=== PATIENT | male | born 1990 | race Caucasian/White ===

== ENCOUNTER → 2017-06-15 | Outpatient (CLI) | payer BC ==
[2017-06-15 07:27] LABS: Basophils % (A) 1 %; CH 32.3; Eosinophils # (A) 0.1 k/uL (0-0.7); Eosinophils % (A) 2 %; HCT 47.3 % (39.0-53.0); HDW 2.45; HGB 16.6 gm/dL (13.0-17.5); Luc # (Auto) 0.19; Luc % (Auto) 4; Lymphocytes # (A) 1.9 k/uL (1.0-4.8); Lymphocytes % (A) 38 %; MCH 32.4 pg (25.0-35.0); MCV 92.6 fL (80.0-100.0); Mean Platelet Volume 8.1; Monocytes # (A) 0.4 k/uL (0-1.0); Monocytes % (A) 8 %; Neutrophils # (A) 2.4 k/uL (1.3-7.7); Neutrophils % (A) 48 %; RBC 5.11 m/uL (4.30-5.90); RDW 13.2 % (11.5-15.5); WBC (Perox) 4.89
[2017-06-15 07:55] LABS: ALT 42 U/L (21-72); AST 21 U/L (17-59); Alkaline Phosphatase 69 U/L (38-126); Anion Gap 10 mmol/L; Blood Urea Nitrogen 11 mg/dL (9-20); Calcium 9.5 mg/dL (8.4-10.2); Carbon Dioxide 26 mmol/L (22-30); Chloride 104 mmol/L (98-107); Cholesterol 162 mg/dL (<200); Glucose 90 mg/dL (74-99); HDL Cholesterol 47 mg/dL (40-60); Non-African American GFR(MDRD) >60 (>60 ml/min/1.73 sqM); Potassium 4.7 mmol/L (3.5-5.1); Sodium 140 mmol/L (137-145); Total Bilirubin 0.5 mg/dL (0.2-1.3); Total Protein 7.1 g/dL (6.3-8.2); Triglycerides 114 mg/dL (<150)
== END | disposition home or self-care (01) ==
LOC: LABWHC1 06:51
PROVIDERS: ATTEND Internal Medicine
DX: R10.2 Pelvic and perineal pain (principal)
CPT/HCPCS: 36415; 80053; 80061; 84439; 84443; 85025

== ENCOUNTER → 2017-06-23 | Outpatient (CLI) | payer BC ==
--- NOTE | 2017-06-23 16:48 | US ---
EXAMINATION TYPE: US pelvic limited DATE OF EXAM: 06/23/2017 COMPARISON: NONE CLINICAL HISTORY: Pelvic Pain R10.2. Patient stated has bilateral groin pain and denies any palpable at this level. Bladder: bladder appears wnl; bilateral ureteral jets are seen; no pelvic masses are seen laterally. Bilateral Groin US: no hernias are identified at patient's inguinal pain. IMPRESSION: Negative pelvic sonogram.
== END | disposition home or self-care (01) ==
LOC: RADUSWWP 16:11
PROVIDERS: ATTEND Internal Medicine
DX: R10.2 Pelvic and perineal pain (principal)
CPT/HCPCS: 76857

== ENCOUNTER → 2018-09-21 | Outpatient (CLI) | payer BC ==
--- NOTE | 2018-09-21 09:55 | XR ---
Left knee HISTORY: Trauma one month prior and pain 3 views of the left knee Bone mineralization, joint spaces and alignment are maintained. Suspect there is a joint effusion. IMPRESSION: No fracture or dislocation. Consider knee MRI.
--- NOTE | 2018-09-21 09:56 | XR ---
Left ankle HISTORY: Trauma one month prior, pain 3 views of the left ankle Bone mineralization, joint spaces and alignment are maintained. IMPRESSION: No fracture or dislocation. Ankle MRI may be of benefit.
== END | disposition home or self-care (01) ==
LOC: RADXRMAIN 07:00
PROVIDERS: ATTEND Internal Medicine
DX: M25.562 Pain in left knee (principal); M25.572 Pain in left ankle and joints of left foot

== ENCOUNTER → 2018-12-28 | Outpatient (CLI) | payer BC ==
--- NOTE | 2018-12-28 10:05 | XR ---
EXAMINATION TYPE: XR abdomen 1V DATE OF EXAM: 12/28/2018 COMPARISON: None INDICATION: Urinary hesitancy TECHNIQUE: Single view abdomen supine view FINDINGS: There is a normal bowel gas pattern. Mild fecal debris is present. Psoas margins are normal. No organomegaly is present. IMPRESSION: 1. Unremarkable Abdomen
== END | disposition home or self-care (01) ==
LOC: RADXRMAIN 06:56
PROVIDERS: ATTEND Internal Medicine
DX: R39.11 Hesitancy of micturition (principal)
CPT/HCPCS: 74018

== ENCOUNTER → 2019-01-10 | Outpatient (CLI) | payer BC ==
--- NOTE | 2019-01-11 08:10 | NM ---
EXAMINATION TYPE: NM hepatobiliary w EF DATE OF EXAM: 01/10/2019 COMPARISON: NONE HISTORY: Right upper quadrant abdominal pain TECHNIQUE: After the intravenous administration of 4.8 mCi Tc 99m Mebrofenin hepatobiliary scintigrap hy is performed. Immediate images post injection. FINDINGS: There is satisfactory initial accumulation of tracer by the liver. The gallbladder is visualized wit hin 6 minutes. The small bowel activity is noted within 16 minutes. At one hour 8 ounces of oral en sure plus is given to mimic CCK and gallbladder ejection fraction is calculated at 45 %, in the juana l range. Therefore there is no scintigraphic evidence of cystic or common bile duct obstruction to s uggest acute cholecystitis or gallbladder dyskinesia. IMPRESSION: No scintigraphic evidence of acute cholecystitis, chronic cholecystitis or biliary dyskin esia.
== END | disposition home or self-care (01) ==
LOC: RADNMMAIN 14:50
PROVIDERS: ATTEND Internal Medicine
DX: R10.11 Right upper quadrant pain (principal)
CPT/HCPCS: 78226; A9537

== ENCOUNTER → 2019-02-01 | Outpatient (CLI) | payer BC ==
--- NOTE | 2019-02-01 08:10 | XR ---
EXAMINATION TYPE: XR chest 2V DATE OF EXAM: 02/01/2019 COMPARISON: NONE HISTORY: Cough and congestion for 3 weeks. TECHNIQUE: Frontal and lateral views of the chest are obtained. FINDINGS: There is no focal air space opacity, pleural effusion, or pneumothorax seen. The cardiac silhouette size is within normal limits. The osseous structures are intact. IMPRESSION: No suspicious acute pulmonary process.
== END | disposition home or self-care (01) ==
LOC: RADXRMAIN 06:48
PROVIDERS: ATTEND Internal Medicine
DX: J20.9 Acute bronchitis, unspecified (principal)
CPT/HCPCS: 71046

== ENCOUNTER → 2019-03-10 | Outpatient (CLI) | payer BC ==
--- NOTE | 2019-03-10 15:44 | CT ---
EXAMINATION TYPE: CT sinus wo con DATE OF EXAM: 03/10/2019 COMPARISON: None HISTORY: Chronic sinusitis CT DLP: 669 mGycm CONTRAST: None The paranasal sinuses are examined in the axial plane at 2 mm thick sections. Reconstructed images i n the coronal plane were obtained. There are retention cyst within the inferior maxillary sinuses bilaterally. The ethmoid air cells ar e clear. The sphenoid sinuses are clear. The frontal sinuses are clear. The septum is evaluated. There is septal deviation to the left. The ostiomeatal units are patent. Mastoid air cells are clear. IMPRESSIONS: 1. Retention cysts bilateral maxillary sinuses. 2. Septal deviation.
== END ==
LOC: RADCTMAIN 08:19
PROVIDERS: ATTEND Otolaryngology
DX: J34.1 Cyst and mucocele of nose and nasal sinus (principal); J34.2 Deviated nasal septum
CPT/HCPCS: 70486

== ENCOUNTER 2024-04-24 16:36 | Emergency (ER) | payer BC ==
[2024-04-24 17:05] VITALS: TEMP 98.4
--- NOTE | 2024-04-24 18:08 | ED ---
General Adult HPI - General Source: patient, RN notes reviewed Mode of arrival: ambulatory Limitations: no limitations <Norma Del Valle - Last Filed: 04/24/24 18:05> <Suhas Wells - Last Filed: 04/24/24 22:33> - General Chief complaint: Weakness Stated complaint: Fever,Stiff Neck-sent from urgentcare Time Seen by Provider: 04/24/24 16:50 - History of Present Illness Initial comments: Quick Note-this is a 34-year-old male presents emergency department chief complaint of chills, body aches, and tiredness over the past few days. Patient states that he was seen at [facility] urgent care where they instructed to report to the emergency department if symptoms worsen and including stiffening neck. 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 (Norma Del Valle) 34-year-old male presenting to the ED with complaints of sore throat. Patient reports yesterday onset of chills. Today notes onset of bodyaches and fatigue. Also notes some stiff neck. was seen at urgent care prior to this and was provided prescription for amoxicillin and steroids. States that urgent care was advised to present to the ED if stiff neck worsen prompting presentation to the ED for further evaluation. Denies fever or chills. No difficulty swallowing. No difficulty breathing. No drooling. No other complaints at this time. (Suhas Wells) - Related Data Allergies Allergy/AdvReac Type Severity Reaction Status Date / Time No Known Allergies Allergy Verified 04/24/24 17:05 Review of Systems ROS Other: All systems not noted in ROS Statement are negative. <Norma Del Valle - Last Filed: 04/24/24 18:05> ROS Other: All systems not noted in ROS Statement are negative. <Suhas Wells - Last Filed: 04/24/24 22:33> ROS Statement: Those systems with pertinent positive or pertinent negative responses have been documented in the HPI. Past Medical History Past Medical History: No Reported History Additional Past Medical History / Comment(s): seasonal allergies. heart burn. History of Any Multi-Drug Resistant Organisms: None Reported Past Surgical History: No Surgical Hx Reported Past Psychological History: No Psychological Hx Reported Smoking Status: Never smoker Past Alcohol Use History: None Reported Past Drug Use History: None Reported <Norma Del Valle - Last Filed: 04/24/24 18:05> General Exam Limitations: no limitations <Norma Del Valle - Last Filed: 04/24/24 18:05> General appearance: alert, in no apparent distress Eye exam: Present: normal appearance ENT exam: Present: normal oropharynx, other (No stridor. Tolerating secretions. No findings concerning for abscess formation) Neck exam: Present: normal inspection, other (Negative Kernig and Brudzinski sign.) Respiratory exam: Present: normal lung sounds bilaterally Cardiovascular Exam: Present: regular rate GI/Abdominal exam: Present: soft Neurological exam: Present: alert, oriented X3 Skin exam: Present: warm, dry <Suhas Wells - Last Filed: 04/24/24 22:33> - General Exam Comments Initial Comments: Visual Physical Exam Vital signs reviewed General: Well-appearing, nontoxic, no acute distress. Head: Normocephalic, atraumatic Eyes: PERRLA, EOMI ENT: Airway patent Chest: Nonlabored breathing Skin: No visual rash, normal skin tone Neuro: Alert and oriented 3 Musculoskeletal: No gross abnormalities (Norma Del Valle) Course Vital Signs 04/24/24 04/24/24 17:01 21:46 Temperature 98.4 F Pulse Rate 88 78 Respiratory 17 18 Rate Blood Pressure 99/63 110/76 O2 Sat by Pulse 97 99 Oximetry Medical Decision Making <Norma Del Valle - Last Filed: 04/24/24 18:05> - Lab Data Result diagrams: 04/24/24 19:57 04/24/24 19:57 <Suhas Wells - Last Filed: 04/24/24 22:33> - Medical Decision Making I completed the quick note portion of this chart signed Norma Del Valle PA-C (Norma Del Valle) Was pt. sent in by a medical professional or institution ([facility], COMPONENT DESIGN ENGINEER, urgent care, hospital, or [place] health care facility...) When possible be specific @ -No Did you speak to anyone other than the patient for history (EMS, parent, family, police, friend...)? What history was obtained from this source @ -No Did you review nursing and triage notes (agree or disagree)? Why? @ -I reviewed and agree with nursing and triage notes Were old charts reviewed (outside hosp., previous admission, EMS record, old EK G, old radiological studies, urgent care reports/EKG's, [place] health care facility records)? Report findings @ -No old charts were reviewed Differential Diagnosis (chest pain, altered mental status, abdominal pain women, abdominal pain men, vaginal bleeding, weakness, fever, dyspnea, syncope, headache, dizziness, GI bleed, back pain, seizure, CVA, palpatations, mental health, musculoskeletal)? @ -Differential Fever: Pneumonia, viral URI, endocarditis, myocarditis, pericarditis, otitis, sinusi tis, peritonsillar Abscess, retropharyngeal Abscess, epiglottitis, peritonitis, appendicitis, Loyda cystitis, diverticulitis, hepatitis, colitis, UTI, PID, TOA, pyelonephritis, prostatitis, epididymitis, meningitis, encephalitis, pulmonary embolism, CVA, thyroid storm, pancreatitis, adrenal crisis, cavernous sinus thrombosis, this is not meant to be an all-inclusive list. EKG interpreted by me (3pts min.). @ -None X-rays interpreted by me (1pt min.). @ -None done CT interpreted by me (1pt min.). @ -None done U/S interpreted by me (1pt. min.). @ -None done What testing was considered but not performed or refused? (CT, X-rays, U/S, labs)? Why? @ -Urinalysis was considered to rule out urinary tract infection however at this time patient reports he would not like to have this done and will follow-up with his PCP. What meds were considered but not given or refused? Why? @ -None Did you discuss the management of the patient with other professionals (professionals i.e. Dr., PA, COMPONENT DESIGN ENGINEER, lab, RT, psych nurse, certified social workers in health care, block mechanic, teacher, community service patrol officer, case finisher)? Give summary @ -No Was smoking cessation discussed for >3mins.? @ -No Was critical care preformed (if so, how long)? @ -No Were there social determinants of health that impacted care today? How? (Homelessness, low income, unemployed, alcoholism, drug addiction, transportation, low edu. Level, literacy, decrease access to med. care, half-way, rehab)? @ -No Was there de-escalation of care discussed even if they declined (Discuss DNR or withdrawal of care, Hospice)? DNR status @ -No What co-morbidities impacted this encounter? (DM, HTN, Smoking, COPD, CAD, Cancer, CVA, ARF, Chemo, Hep., AIDS, mental health diagnosis, sleep apnea, morbid obesity)? @ -None Was patient admitted / discharged? Hospital course, mention meds given and route, prescriptions, significant lab abnormalities, going to OR and other pertinent info. @ -Discharge 34-year-old male presenting to the ED with complaints of sore throat, myalgias, fatigue, and stiff neck. On examination negative for meningeal signs. Oropharynx unremarkable. Laboratory studies reviewed. Labs including CBC CMP unremarkable. Patient provided IV fluids and analgesia and reported improvement of symptoms. Symptoms likely viral in nature. Advised continuing medications prescribed by urgent care if he would like however I advised that antibiotics are unlikely not beneficial. Advise close follow-up with his PCP. Discharged home in stable condition. Discussed return precautions with patient who verb alized agreement. Undiagnosed new problem with uncertain prognosis? @ -No Drug Therapy requiring intensive monitoring for toxicity (Heparin, Nitro, Insulin, Cardizem)? @ -No Were any procedures done? @ -No Diagnosis/symptom? @ -Viral pharyngitis Acute, or Chronic, or Acute on Chronic? @ -Acute Uncomplicated (without systemic symptoms) or Complicated (systemic symptoms)? @ -Uncomplicated Side effects of treatment? @ -No Exacerbation, Progression, or Severe Exacerbation? @ -No Poses a threat to life or bodily function? How? (Chest pain, [place], [place], pneumonia, PE, COPD, DKA, ARF, appy, cholecystitis, CVA, Diverticulitis, Homicidal, Suicidal, threat to staff... and all critical care pts) @ -No (Suhas Wells) - Lab Data Lab Results 04/24/24 04/24/24 Range/Units 19:57 19:57 WBC 4.7 (3.8-10.6) k/uL RBC 5.04 (4.30-5.90) m/uL Hgb 16.2 (13.0-17.5) gm/dL Hct 46.7 (39.0-53.0) % MCV 92.7 (80.0-100.0) fL MCH 32.2 (25.0-35.0) pg MCHC 34.7 (31.0-37.0) g/dL RDW 12.5 (11.5-15.5) % Plt Count 188 (150-450) k/uL MPV 8.1 Neutrophils % 74 % Lymphocytes % 14 % Monocytes % 7 % Eosinophils % 0 % Basophils % 1 % Neutrophils # 3.5 (1.3-7.7) k/uL Lymphocytes # 0.7 L (1.0-4.8) k/uL Monocytes # 0.3 (0-1.0) k/uL Eosinophils # 0.0 (0-0.7) k/uL Basophils # 0.0 (0-0.2) k/uL Sodium 136 L (137-145) mmol/L Potassium 4.5 (3.5-5.1) mmol/L Chloride 105 (98-107) mmol/L Carbon Dioxide 26 (22-30) mmol/L Anion Gap 5 mmol/L BUN 14 (9-20) mg/dL Creatinine 1.00 (0.66-1.25) mg/dL Est GFR (CKD-EPI)AfAm >90 (>60 ml/min/1.73 sqM) Est GFR (CKD-EPI)NonAf >90 (>60 ml/min/1.73 sqM) Glucose 114 H (74-99) mg/dL Calcium 9.6 (8.4-10.2) mg/dL Total Bilirubin 0.6 (0.2-1.3) mg/dL AST 29 (17-59) U/L ALT 35 (4-49) U/L Alkaline Phosphatase 82 (38-126) U/L Total Protein 7.4 (6.3-8.2) g/dL Albumin 4.7 (3.5-5.0) g/dL Disposition <Norma Del Valle - Last Filed: 04/24/24 18:05> Is patient prescribed a controlled substance at d/c from ED?: No Time of Disposition: 22:00 <Suhas Wells - Last Filed: 04/24/24 22:33> Clinical Impression: Viral pharyngitis Disposition: HOME SELF-CARE Condition: Good Instructions (If sedation given, give patient instructions): Pharyngitis (ED) Additional Instructions: Please return to the Emergency Department if symptoms worsen or any other concerns. Please follow-up with your primary care provider. Use [id number] medications as needed for pain. Referrals: Destinee Lopez MD [Primary Care Provider] - 1-2 days
[2024-04-24 20:08] LABS: Basophils % (A) 1 %; Eosinophils % (A) 0 %; HCT 46.7 % (39.0-53.0); HGB 16.2 gm/dL (13.0-17.5); Lymphocytes # (A) 0.7 k/uL (1.0-4.8); Lymphocytes % (A) 14 %; MCH 32.2 pg (25.0-35.0); MCHC 34.7 g/dL (31.0-37.0); MCV 92.7 fL (80.0-100.0); Mean Platelet Volume 8.1; Monocytes # (A) 0.3 k/uL (0-1.0); Monocytes % (A) 7 %; Neutrophils # (A) 3.5 k/uL (1.3-7.7); Neutrophils % (A) 74 %; Platelet Count 188 k/uL (150-450); RBC 5.04 m/uL (4.30-5.90); RDW 12.5 % (11.5-15.5); WBC 4.7 k/uL (3.8-10.6)
[2024-04-24 20:18] LABS: ALT 35 U/L (4-49); AST 29 U/L (17-59); African American GFR (CKD) >90 (>60 ml/min/1.73 sqM); Albumin 4.7 g/dL (3.5-5.0); Alkaline Phosphatase 82 U/L (38-126); Anion Gap 5 mmol/L; Blood Urea Nitrogen 14 mg/dL (9-20); Calcium 9.6 mg/dL (8.4-10.2); Carbon Dioxide 26 mmol/L (22-30); Chloride 105 mmol/L (98-107); Glucose 114 mg/dL (74-99); Non-African American GFR(CKD) >90 (>60 ml/min/1.73 sqM); Potassium 4.5 mmol/L (3.5-5.1); Sodium 136 mmol/L (137-145); Total Bilirubin 0.6 mg/dL (0.2-1.3); Total Protein 7.4 g/dL (6.3-8.2)
[2024-04-24] MEDS: SODIUM CHLORIDE 0.9% 1,000 ML BAG IV STA (20:40)
[2024-04-24] MEDS: KETOROLAC 15 MG/ML 1 ML VIAL IVP STA (20:55)
[2024-04-24] MEDS: ACETAMINOPHEN TAB 500 MG TAB PO STA (20:56)
[2024-04-24 21:47] VITALS: BP 110/76; PULSE 78; RESP 18
== END 2024-04-24 22:39 | disposition home or self-care (01) ==
LOC: EC 16:36
DX: J02.8 Acute pharyngitis due to other specified organisms (principal)
CPT/HCPCS: 36415; 80053; 83655; 85025; 99285; 96374; 96361; J1885